=== PATIENT | male | born 1960 | race Caucasian/White ===

== ENCOUNTER 2016-12-06 14:19 | Emergency (ER) | payer MEDICAID ==
[~2016-12-06] VITALS: Ht 170.2 cm; Wt 85.0 kg
[~2016-12-06 14:19] MED LIST: ASPI-621 PO; ATOR80TA75 PO; CARV6.2512 PO; FURO-93 PO; LISI5TAB7 PO; POTA10TA5 PO; TICA90TA PO
[2016-12-06 14:21] VITALS: BP 166/103
[2016-12-06] MEDS ORDERED: OXYcodone/APAP 5/325MG TABLET ONE (15:16)
[2016-12-06] MEDS ORDERED: SULFAMETH./TRIMETHOPRIM DS 800MG/160MG TABLET ONE (15:16)
[2016-12-06] MEDS ORDERED: SULFAMETH./TRIMETHOPRIM DS 800MG/160MG TABLET PO ONE (15:30)
[2016-12-06] MEDS ORDERED: OXYcodone/APAP 5/325MG TABLET PO ONE (15:30)
[2016-12-06] MEDS ORDERED: SODIUM CHLORIDE FLUSH 10ML SYR IVF ONE (15:30)
[2016-12-06] MEDS ORDERED: AMPICILLIN/SULBACTAM 3 GM in SODIUM CHLORIDE 0.9% 100 ML IVPB ONE (15:30)
== END 2016-12-06 16:49 | disposition home or self-care (01) ==
LOC: ED 16:43
DX: L03.114 Cellulitis of left upper limb (principal); I10 Essential (primary) hypertension
CPT/HCPCS: 36415; 73130; 85025; 96365; 99285; J0295

== ENCOUNTER 2020-10-19 12:55 | Emergency (ER) | payer MEDICAID, OTHER ==
[~2020-10-19] VITALS: Ht 180.3 cm; Wt 98.0 kg
[~2020-10-19 12:55] MED LIST changes: -ASPI-621 PO; +ASPI81TA45 PO; +ATOR-2 PO; -ATOR80TA75 PO
--- NOTE | 2020-10-19 13:00 | NUR ---
Report received from SARINA, anti air warfare operations officer at bedside, and pt found with leg and wrist cuffs attached to waist chain in bed. Pt changed into a gown, IV site assessed and saline locked, and EMS 12 lead assessed. Awaiting MD exam/orders.
[2020-10-19] MEDS ORDERED: ASPIRIN 81 MG TABLET CHEW PO ONE (14:00)
[2020-10-19] MEDS ORDERED: SODIUM CHLORIDE FLUSH 10ML SYR IVF ONE (14:00)
[2020-10-19 14:17] LABS: CHLORIDE 108 mmol/L (98-107)
[2020-10-19 14:21] LABS: BASOPHILS % (AUTO) 0 % (0-1); EOSINOPHILS % (AUTO) 2 % (1-7); LYMPHOCYTES % (AUTO) 22 % (22-44); MEAN CORPUSCULAR HGB CONC 34.1 g/dL (33.2-36.2); MONOCYTES % (AUTO) 8 % (2-9); NEUTROPHILS % (AUTO) 68 % (42-75); PLATELET COUNT 180 x10^3/uL (130-400); RED BLOOD COUNT 5.39 x10^6/uL (4.38-5.82); RED CELL DISTRIBUTION WIDTH 15.5 % (9.4-14.8)
[2020-10-19 14:23] LABS: MD NO
[2020-10-19 14:26] LABS: ALANINE AMINOTRANSFERASE 35 U/L (12-78); ALBUMIN 3.9 g/dL (3.4-5.0); ALKALINE PHOSPHATASE 80 U/L (45-117); ANION GAP 7 mmol/L (5-15); BILIRUBIN,TOTAL 0.9 mg/dL (0.2-1.0); CALCIUM 8.9 mg/dL (8.5-10.1); CREATININE 0.99 mg/dL (0.7-1.3); TOTAL PROTEIN 7.1 g/dL (6.4-8.2); TROPONIN I < 0.015 ng/mL (0.000-0.045)
[2020-10-19] MEDS ORDERED: ASPIRIN 81 MG TABLET CHEW ONE (14:30)
--- NOTE | 2020-10-19 14:33 | NUR ---
Pt resting quietly in no acute distress and ASA given as ordered.
--- NOTE | 2020-10-19 14:35 | NUR ---
Lab and radiology results reviewed and chart marked for recheck.
--- NOTE | 2020-10-19 15:05 | NUR ---
Report given to meal break RN and care transferred.
--- NOTE | 2020-10-19 15:35 | NUR ---
Care reassumed without change per report from meal break RN.
[2020-10-19] MEDS ORDERED: LABETALOL 5MG/ML, 20ML IVPush ONE (16:00)
--- NOTE | 2020-10-19 16:05 | NUR ---
MD at bedside for reassessment and orders for Labetalol to be given for HTN verbalized.
[2020-10-19] MEDS ORDERED: LABETALOL 5MG/ML, 20ML ONE (16:09)
[2020-10-19 16:14] LABS: TROPONIN I 0.017 ng/mL (0.000-0.045)
--- NOTE | 2020-10-19 16:17 | NUR ---
labetalol per mar, pt tolerated well, nad. as
--- NOTE | 2020-10-19 16:30 | NUR ---
Good effect noted after Labetalol admin. Awaiting recheck by and probable d/c back to detention.
--- NOTE | 2020-10-19 17:04 | NUR ---
Awaiting paperwork from MD for d/c at this time. Good effect noted with Labetalol admin on reassessment.
[2020-10-19 17:26] VITALS: BP 162/91
== END 2020-10-19 17:29 | disposition home or self-care (01) ==
LOC: ED 16:06
DX: I10 Essential (primary) hypertension (principal); R06.00 Dyspnea, unspecified; R06.02 Shortness of breath; R07.89 Other chest pain; I44.7 Left bundle-branch block, unspecified; I25.2 Old myocardial infarction
CPT/HCPCS: 36415; 71045; 80053; 83880; 84484; 85025; 93005; 96374; 99285

== ENCOUNTER 2021-02-10 15:09 | Emergency (ER) | payer MEDICAID, OTHER ==
[~2021-02-10] VITALS: Ht 172.7 cm; Wt 100.0 kg
--- NOTE | 2021-02-10 15:43 | NUR ---
PT BACK FROM TRIAGE WITH CHIEF COMPLAINT OF SOB FOR ONE MONTH. NO OTHER SYMPTOMS REPORTED.
[2021-02-10 16:12] LABS: ALANINE AMINOTRANSFERASE 35 U/L (12-78); ALBUMIN 3.4 g/dL (3.4-5.0); ANION GAP 7 mmol/L (5-15); CALCIUM 8.3 mg/dL (8.5-10.1); CHLORIDE 110 mmol/L (98-107); CREATININE 0.85 mg/dL (0.7-1.3)
[2021-02-10 16:17] LABS: ALKALINE PHOSPHATASE 74 U/L (45-117); BILIRUBIN,TOTAL 0.7 mg/dL (0.2-1.0); TOTAL PROTEIN 6.9 g/dL (6.4-8.2)
--- NOTE | 2021-02-10 16:27 | NUR ---
PT resting in bed
[2021-02-10 16:30] LABS: BASOPHILS % (AUTO) 0 % (0-1); EOSINOPHILS % (AUTO) 4 % (1-7); LYMPHOCYTES % (AUTO) 31 % (22-44); MEAN CORPUSCULAR HEMOGLOBIN 28.9 pg (27.5-34.5); MEAN CORPUSCULAR HGB CONC 33.2 g/dL (33.2-36.2); MEAN PLATELET VOLUME 9.4 fL (7.4-10.4); MONOCYTES % (AUTO) 8 % (2-9); NEUTROPHILS % (AUTO) 56 % (42-75); PLATELET COUNT 166 x10^3/uL (130-400)
[2021-02-10 16:46] LABS: D-DIMER 0.23 ug/mlFEU (0.00-0.52); INTERNATIONAL NORMALIZED RATIO 1.02 (0.93-1.1); PROTHROMBIN TIME 10.9 Seconds (9.6-11.5)
[2021-02-10] MEDS ORDERED: ALBUTEROL/IPRATROPIUM 2.5MG/0.5MG, 3 ML NPPB ONE (17:00)
[2021-02-10 17:07] VITALS: BP 145/95
[2021-02-10] MEDS ORDERED: ALBUTEROL/IPRATROPIUM 2.5MG/0.5MG, 3 ML ONE (17:25)
--- NOTE | 2021-02-10 17:26 | NUR ---
TASK RN: MEDICATED PER EMAR WITH DUONEB NEBULIZER. BREATH SOUNDS PRIOR CLEAR TO UPPER/MID CABRERA BUT DEMINISHED TO BASES, RR: 20-26
[2021-02-10] MEDS ORDERED: OXYcodone/APAP 5/325MG TABLET ONE (18:05)
--- NOTE | 2021-02-10 18:17 | NUR ---
dc instructions reviewed
== END 2021-02-10 18:18 | disposition home or self-care (01) ==
LOC: ED 18:15
DX: R06.00 Dyspnea, unspecified (principal); I44.7 Left bundle-branch block, unspecified; R06.02 Shortness of breath; I10 Essential (primary) hypertension; I25.2 Old myocardial infarction
CPT/HCPCS: 36415; 71045; 80053; 83880; 84484; 85025; 85379; 85610; 85730; 93005; 94640

== ENCOUNTER 2021-02-24 06:08 | Emergency (ER) | payer MEDICAID ==
[~2021-02-24] VITALS: Ht 170.2 cm; Wt 105.0 kg
--- NOTE | 2021-02-24 06:15 | NUR ---
EKG DONE IN TRIAGE.
--- NOTE | 2021-02-24 06:55 | NUR ---
REPORT RECEIVED FROM YURY SINGH. PT LAYING ON GURNEY WITH EYES CLOSED BUT RESPONDS APPROP TO STAFF, C/O PERSISTENT SOB, VSS W SUPPL O2 IN PLACE- ERP AWARE, COMFORT MEASURES PROVIDED, CALL LIGHT WITHIN REACH.
--- NOTE | 2021-02-24 06:56 | NUR ---
Report given to FRANCISCO Holden
[2021-02-24] MEDS ORDERED: SODIUM CHLORIDE FLUSH 10ML SYR IVF ONE (07:00)
[2021-02-24 07:06] LABS: BASOPHILS % (AUTO) 0 % (0-1); EOSINOPHILS % (AUTO) 3 % (1-7); LYMPHOCYTES % (AUTO) 32 % (22-44); MEAN CORPUSCULAR HEMOGLOBIN 29.1 pg (27.5-34.5); MEAN CORPUSCULAR HGB CONC 33.3 g/dL (33.2-36.2); MEAN PLATELET VOLUME 9.3 fL (7.4-10.4); MONOCYTES % (AUTO) 10 % (2-9); NEUTROPHILS % (AUTO) 54 % (42-75); PLATELET COUNT 172 x10^3/uL (130-400); RED BLOOD COUNT 5.17 x10^6/uL (4.38-5.82)
[2021-02-24 07:10] LABS: CALCIUM 8.8 mg/dL (8.5-10.1); CHLORIDE 109 mmol/L (98-107)
[2021-02-24 07:19] LABS: ALANINE AMINOTRANSFERASE 46 U/L (12-78); ALBUMIN 3.5 g/dL (3.4-5.0); ALKALINE PHOSPHATASE 72 U/L (45-117); ANION GAP 8 mmol/L (5-15); BILIRUBIN,TOTAL 0.9 mg/dL (0.2-1.0); CREATININE 1.34 mg/dL (0.7-1.3); TOTAL PROTEIN 6.6 g/dL (6.4-8.2); TROPONIN I 0.023 ng/mL (0.000-0.045)
--- NOTE | 2021-02-24 08:02 | NUR ---
PT CONTINUES LAYING ON GURNEY WITH EYES CLOSED BUT RESPONDS APPROP TO STAFF, NAD, AWAITING RT, NO NEEDS AT THIS TIME, CALL LIGHT WITHIN REACH.
[2021-02-24] MEDS ORDERED: ALBUTEROL/IPRATROPIUM 2.5MG/0.5MG, 3 ML NPPB ONE (08:30)
[2021-02-24 09:05] VITALS: BP 142/104
--- NOTE | 2021-02-24 09:05 | NUR ---
PT LAYING ON GURNEY WITH EYES CLOSED BUT RESPONDS APPROP TO STAFF, NAD W SUPPL O2 IN PLACE, COMFORT MEASURES PROVIDED, CALL LIGHT WITHIN REACH.
--- NOTE | 2021-02-24 09:40 | NUR ---
Patient given discharge instructions and Rx they have confirmed that they understand the instructions. Patient ambulatory with steady gait. NAD, all questions answered appropriately, denies additional needs at this time. No personal belongings left in room after discharge.
== END 2021-02-24 09:59 | disposition home or self-care (01) ==
LOC: ED 06:13
DX: J44.0 Chronic obstructive pulmonary disease with (acute) lower respiratory infection (principal); F15.20 Other stimulant dependence, uncomplicated; H10.023 Other mucopurulent conjunctivitis, bilateral; I10 Essential (primary) hypertension; I25.2 Old myocardial infarction
CPT/HCPCS: 36415; 71045; 80053; 83880; 84484; 85025; 93005; 99285; J7512